=== PATIENT | female | born 1965 | race Caucasian/White ===

== ENCOUNTER 2018-06-25 09:00 | Emergency (ER) | payer OTHER ==
[2018-06-25 09:12] VITALS: RESP 16
[2018-06-25] MEDS ORDERED: SODIUM CHLORIDE 0.9% 500 ML 500 ML IV STA (09:13)
--- NOTE | 2018-06-25 09:34 | ED ---
General Adult HPI - General Chief complaint: Syncope Stated complaint: Syncope Time Seen by Provider: 06/25/18 09:12 Source: patient, EMS, RN notes reviewed, old records reviewed Mode of arrival: EMS Limitations: no limitations - History of Present Illness Initial comments: 52-year-old female with no significant past medical history presents for evaluat ion of near syncope. Patient had donated plasma this morning, she felt very lightheaded, felt as though her legs were weak and that she was going to pass out. She states that she was given plasma twice weekly for the past 6-8 weeks. She's had no issues previously. She has no chronic medical problems. Denies any chest pain or palpitations associated with this episode. After EMS had established IV and administered normal saline, the patient did feel significantly better. - Related Data Home Medications Medication Instructions Recorded Confirmed Ascorbic Acid [Vitamin C] 1,000 mg PO DAILY 06/25/18 06/25/18 Cholecalciferol [Vitamin D3] 1,000 unit PO DAILY 06/25/18 06/25/18 Ibuprofen [Motrin Ib] 400 mg PO Q6H PRN 06/25/18 06/25/18 Magnesium Oxide [Mag-Ox] 400 mg PO DAILY 06/25/18 06/25/18 Allergies Allergy/AdvReac Type Severity Reaction Status Date / Time No Known Allergies Allergy Verified 06/25/18 10:04 Review of Systems ROS Statement: Those systems with pertinent positive or pertinent negative responses have been documented in the HPI. ROS Other: All systems not noted in ROS Statement are negative. Past Medical History Past Medical History: No Reported History History of Any Multi-Drug Resistant Organisms: None Reported Past Surgical History: No Surgical Hx Reported Past Psychological History: No Psychological Hx Reported Smoking Status: Never smoker Past Alcohol Use History: None Reported Past Drug Use History: None Reported General Exam Limitations: no limitations General appearance: alert, in no apparent distress Head exam: Present: atraumatic, normocephalic Eye exam: Present: normal appearance, PERRL ENT exam: Present: normal exam Neck exam: Present: normal inspection. Absent: tenderness, meningismus Respiratory exam: Present: normal lung sounds bilaterally. Absent: respiratory distress, wheezes Cardiovascular Exam: Present: regular rate, normal rhythm GI/Abdominal exam: Present: soft. Absent: distended, tenderness, guarding Extremities exam: Present: normal inspection, normal capillary refill. Absent: pedal edema Neurological exam: Present: alert, oriented X3, CN II-XII intact. Absent: motor sensory deficit Psychiatric exam: Present: normal affect, normal mood Course Vital Signs 06/25/18 06/25/18 09:07 09:40 Temperature 97.4 F L Pulse Rate 79 77 Respiratory 16 16 Rate Blood Pressure 118/79 114/86 O2 Sat by Pulse 99 99 Oximetry EKG Findings - EKG Comments: EKG Findings:: EKG: Normal sinus rhythm, rate of 67, NC interval 136, QRS duration 74, QTC 407 ST segment changes. Medical Decision Making - Medical Decision Making 52 -year-old female presenting with near syncopal episode after donating plasma. Initial blood pressure by EMS was 80 systolic. Given IV fluids, the time of arrival patient did feel significantly better. She is given additional normal saline IV. Laboratory studies obtained, patient has hemoglobin 16.8 likely secondary to hemoconcentration and dehydration. She has an albumin of 2.8 consistent with plasma donation and hypoalbuminemia. She is instructed to refrain from plasma donation. She will maintain oral hydration at home. Return with worsening or changing symptoms. - Lab Data Result diagrams: 06/25/18 09:20 06/25/18 09:20 Lab Results 06/25/18 06/25/18 06/25/18 Range/Units 09:20 09:20 09:20 WBC 11.4 H (3.8-10.6) k/uL RBC 5.73 H (3.80-5.40) m/uL Hgb 16.8 H (11.4-16.0) gm/dL Hct 49.8 H (34.0-46.0) % MCV 86.9 (80.0-100.0) fL MCH 29.3 (25.0-35.0) pg MCHC 33.7 (31.0-37.0) g/dL RDW 14.2 (11.5-15.5) % Plt Count 227 (150-450) k/uL Neutrophils % 77 % Lymphocytes % 17 % Monocytes % 4 % Eosinophils % 1 % Basophils % 0 % Neutrophils # 8.8 H (1.3-7.7) k/uL Lymphocytes # 1.9 (1.0-4.8) k/uL Monocytes # 0.5 (0-1.0) k/uL Eosinophils # 0.1 (0-0.7) k/uL Basophils # 0.1 (0-0.2) k/uL Sodium 139 (137-145) mmol/L Potassium 4.1 (3.5-5.1) mmol/L Chloride 108 H (98-107) mmol/L Carbon Dioxide 26 (22-30) mmol/L Anion Gap 5 mmol/L BUN 15 (7-17) mg/dL Creatinine 0.66 (0.52-1.04) mg/dL Est GFR (CKD-EPI)AfAm >90 (>60 ml/min/1.73 sqM) Est GFR (CKD-EPI)NonAf >90 (>60 ml/min/1.73 sqM) Glucose 136 H (74-99) mg/dL Calcium 8.2 L (8.4-10.2) mg/dL Magnesium 2.0 (1.6-2.3) mg/dL Total Bilirubin 0.5 (0.2-1.3) mg/dL AST 16 (14-36) U/L ALT 21 (9-52) U/L Alkaline Phosphatase 32 L (38-126) U/L Troponin I <0.012 (0.000-0.034) ng/mL Total Protein 4.6 L (6.3-8.2) g/dL Albumin 2.8 L (3.5-5.0) g/dL Disposition Clinical Impression: Dehydration, Syncope due to orthostatic hypotension Disposition: HOME SELF-CARE Condition: Good Instructions (If sedation given, give patient instructions): Syncope (ED), Dehydration (ED) Is patient prescribed a controlled substance at d/c from ED?: No Referrals: None,Stated [Primary Care Provider] - 1-2 days Alon Caballero MD [STAFF PHYSICIAN] - 1-2 days Time of Disposition: 10:45
[2018-06-25 09:54] LABS: Basophils # (A) 0.1 k/uL (0-0.2); Basophils % (A) 0 %; Eosinophils # (A) 0.1 k/uL (0-0.7); Eosinophils % (A) 1 %; HCT 49.8 % (34.0-46.0); HGB 16.8 gm/dL (11.4-16.0); Lymphocytes # (A) 1.9 k/uL (1.0-4.8); Lymphocytes % (A) 17 %; MCH 29.3 pg (25.0-35.0); MCHC 33.7 g/dL (31.0-37.0); MCV 86.9 fL (80.0-100.0); Mean Platelet Volume 7.9; Monocytes # (A) 0.5 k/uL (0-1.0); Monocytes % (A) 4 %; Neutrophils # (A) 8.8 k/uL (1.3-7.7); Neutrophils % (A) 77 %; Platelet Count 227 k/uL (150-450); RBC 5.73 m/uL (3.80-5.40); RDW 14.2 % (11.5-15.5); WBC 11.4 k/uL (3.8-10.6)
[2018-06-25 10:04] LABS: ALT 21 U/L (9-52); AST 16 U/L (14-36); Albumin 2.8 g/dL (3.5-5.0); Alkaline Phosphatase 32 U/L (38-126); Anion Gap 5 mmol/L; Blood Urea Nitrogen 15 mg/dL (7-17); Calcium 8.2 mg/dL (8.4-10.2); Carbon Dioxide 26 mmol/L (22-30); Chloride 108 mmol/L (98-107); Glucose 136 mg/dL (74-99); Potassium 4.1 mmol/L (3.5-5.1); Sodium 139 mmol/L (137-145); Total Bilirubin 0.5 mg/dL (0.2-1.3); Total Protein 4.6 g/dL (6.3-8.2)
[2018-06-25 11:03] VITALS: BP 122/90; PULSE 75; TEMP 98
== END 2018-06-25 11:03 | disposition home or self-care (01) ==
LOC: EC 09:00
DX: E86.0 Dehydration (principal); I95.1 Orthostatic hypotension; Z79.899 Other long term (current) drug therapy
CPT/HCPCS: 36415; 80053; 83735; 84484; 85025; 93005; 99285